=== PATIENT | male | born 1950 | race African-American/Black ===

== ENCOUNTER 2018-08-02 09:18 | Inpatient (IN) | payer MEDICARE ==
--- NOTE | 2018-07-31 16:50 | Diagnostic Imaging Report ---
EXAMINATION: PA and lateral views of the chest. COMPARISON: None CLINICAL HISTORY: Preoperative x-ray for bladder tumor removal DISCUSSION: Evaluation limited due to patient body habitus. Lungs are clear without focal airspace consolidation, pleural effusion, or pneumothorax. Calcified granuloma in the left upper lobe. Tortuous thoracic aorta with otherwise normal cardiomediastinal contour. No overt pulmonary edema. No acute osseous abnormality. Multilevel degenerative disc changes of the thoracic spine. IMPRESSION: No acute cardiopulmonary abnormalities. Signed by: Dr. Mendoza Bennett M.D. on 07/31/2018 4:47 PM
[~2018-08-02] VITALS: Ht 182.9 cm; Wt 128.8 kg
[~2018-08-02 09:18] MED LIST: AMLODIPINE BESYL5 MG PO; AMMONIUM LACTATE1 ML PO; CICLOPIROX15 GM TOP; CYCLOBENZAPRINE10 MG PO; DICLOFENAC SOD2.5 ML PO; FLECTOR1 EACH PO; HUMALOG100 UNIT/1 SC; LANTUS 3ML100 UNITS/ SC; LEVOCETIRIZINE D5 MG PO; METOPROLOL TART25 MG PO; NORCO 5-325 TA1 EACH PO; SIMVASTATIN20 MG PO; TAMSULOSIN HCL0.4 MG PO
--- OUTSIDE RECORDS SUMMARY | 2018-08-02 09:20 | XMS REPORT | Clinical Summary ---
Author Author [facility] Organization [facility] Address Unknown Phone Unavailable Care Team Providers Care Visual Effects Artist Name Role Phone Gayathri Thompson DO PCP Allergies Not on File Medications Not on file Active Problems Not on file Encounters Care Team Description Date Type Specialty Ann Pugh MD Atherosclerosis of artery of both lower extremities (Primary Dx) 01/04/2018 Transcribe Cardiovascular Orders Ann Pugh MD 12/25/2017 Telephone Cardiovascular after 08/01/2017 Social History Date Tobacco Use Types Packs/Day Years Used Never Assessed Sex Assigned at Date Recorded Not on file Industry Job Start Date Occupation Not on file Not on file Not on file Travel End Travel History Travel Start No recent travel history available. Last Filed Vital Signs Not on file Plan of Treatment Health Maintenance Due Date Last Done Comments COLON CANCER SCREENING 2001 SHINGRIX VACCINE (1 of 2) 2001 ZOSTER VACCINE 2011 PNEUMOCOCCAL 2016 POLYSACCHARIDE VACCINE AGE 65 AND OVER PNEUMOCOCCAL-13 2016 INFLUENZA VACCINE 04/17/2018 Procedures Comments Procedure Name Priority Date/Time Associated Diagnosis US ANKLE BRACHIAL INDEX Routine 01/11/2018 Atherosclerosis of artery 4:10 PM CDT of both lower extremities after 08/01/2017 Results * PV ankle brachial indices extremity complete (01/11/2018 4:10 PM CDT) Narrative Performed At [facility] Lower Extremity Arterial Physiologic Report [address] [place] [address], [address], [place] [address] Pat.Name:RICKY ROMOPaty.ID:[id number] .Date: 01/11/2018 Refer.MD:ANN PUGH MD Exam Time: 3:20:00 PMStudy Type:Physiologic Leg DOBAge:1950,67Y Sex: MALE Sonogrphr: Stella Aguilera RVT TapeVol: TG, CPT - 4: 21553 Echo Event ID:[id number] Order ID:[id number] Reason for Study:Circulation issues, referred by Dr. Gayathri Johnson. Non healing wound on top of left foot. History of high blood pressure and diabetes. Race:C SUMMARY: DOPPLER SIGNALS /ANALOG WAVEFORMS: ANALOG WAVEFORMS ARTERY RIGHT LEFT Posterior Tibial Abnormal Abnormal Dorsalis Pedis Abnormal Abnormal PHYSICIAN INTERPRETATION: 1.Resting ankle brachial indices suggest moderate lower extremity arterial occlusive disease, bilaterally. 2.Toe brachial index suggests severe disease bilaterally. MEASUREMENTS: PRESSURES Left Brachial Brach P152 mmHg Left Great Toe GreatToe P55 mmHg Right Brachial Brach P154 mmHg Right Great Toe GreatToe P62 mmHg Right Ankle PT AnklePT P112 mmHg Left Ankle PT AnklePT P103 mmHg Right Ankle DP AnkleDP P113 mmHg Left Ankle DP AnkleDP P103 mmHg Right ARLETH PT ARLETH PT0.73 Left ARLETH PT ARLETH PT0.67 Right RALETH DP ARLETH DP0.73 Left ARLETH DP ARLETH DP0.67 Right TBI TBI0.4 Left TBI TBI 0.36 Signed 01/11/2018 10:31 PM Ann Pugh MD, RPVI Procedure Note Interface, Radiology Results In - 01/11/2018 10:31 PM CDT [facility] Lower Extremity Arterial Physiologic Report [address] [place] [address], [address], [place] [address] Pat.Name: RICKY ROMO Pat.ID: [id number] .Date: 01/11/2018 Refer.MD: ANN PUGH MD Exam Time: 3:20:00 PM Study Type:Physiologic Leg Age: 9 1950,67Y Sex: MALE Sonogrphr: Stella Aguilera, RVT Tape Vol: TG, CPT - 4: 38116 Echo Event ID:[id number] Order ID: [id number] Reason for Study:Circulation issues, referred by Dr. Gayathri Johnson. Non healing wound on top of left foot. History of high blood pressure and diabetes. Race: C SUMMARY: DOPPLER SIGNALS / ANALOG WAVEFORMS: ANALOG WAVEFORMS ARTERY RIGHT LEFT Posterior Tibial Abnormal Abnormal Dorsalis Pedis Abnormal Abnormal PHYSICIAN INTERPRETATION: 1. Resting ankle brachial indices suggest moderate lower extremity arterial occlusive disease, bilaterally. 2. Toe brachial index suggests severe disease bilaterally. MEASUREMENTS: PRESSURES Left Brachial Brach P 152 mmHg Left Great Toe GreatToe P 55 mmHg Right Brachial Brach P 154 mmHg Right Great Toe GreatToe P 62 mmHg Right Ankle PT AnklePT P 112 mmHg Left Ankle PT AnklePT P 103 mmHg Right Ankle DP AnkleDP P 113 mmHg Left Ankle DP AnkleDP P 103 mmHg Right ARLETH PT ARLETH PT 0.73 Left ARLETH PT ARLETH PT 0.67 Right ARLETH DP ARLETH DP 0.73 Left ARLETH DP ARLETH DP 0.67 Right TBI TBI 0.4 Left TBI TBI 0.36 Signed 01/11/2018 10:31 PM Ann Pugh MD, RPVI Performing Organization Address City/State/Zipcode Phone Number [facility] [address] [place] [address] after 08/01/2017 Insurance Payer Benefit Subscriber ID Type Phone Address Plan / Group [employer] MEDICARE HUMANA xxxxxxxxx PPO MEDICARE PPO/PFFS/E [facility] Advance Directives Patient has advance care planning documents on file. For more information, danya wilcox contact: Inocente Harrison [address] [place] [address]
--- OUTSIDE RECORDS SUMMARY | 2018-08-02 09:20 | XMS REPORT ---
Author Author [facility] Address Unknown Phone Unavailable Care Team Providers Care Enrollment Specialist Name Role Phone KYLAH SYKES Unavailable Unavailable Problems This patient has no known problems. Allergies, Adverse Reactions, Alerts This patient has no known allergies or adverse reactions. Medications This patient has no known medications. Results Test Description Test Time Test Comments Text Results Atomic Results Result Comments CHEST 2 VIEWS 2018-07-31 16:46:00 [place] [address] Patient Name: MAGGY SOL MR #: [id number] : 1950 Age/Sex: 68/M Req #: [id number] [facility] Physician: Ordered by: KYLAH SYKES MD Report #: [id number] Location: OR Room/Bed: Procedure: [id number] DX/CHEST 2 VIEWS Exam Date: 07/31/18 Exam Time: 1623 REPORT STATUS: Signed EXAMINATION: PA and lateral views of the chest. ELIZABETH RISON: None CLINICAL HISTORY: Preoperative x-ray for bladder tumor removal DISCUSSION: Evaluation limited due to patient body habitus. Lungs are clear without focal airspace consolidation, pleural effusion, or pneumothorax. Calcified granuloma in the left upper lobe. Tortuous thoracic aorta with otherwise normal cardiomediastinal contour. No overt pulmonary edema. No acute osseous abnormality. Multilevel degenerative disc changes of the thoracic spine. IMPRESSION: No acute cardiopulmonary abnormalities. Signed by: Dr. Fitz Rodriguez M.D. on 07/31/2018 4:47 PM Dictated By: FITZ RODRIGUEZ MD 46 Transcribed By: LILIA on 07/31/181646 COPY TO: KYLAH SYKES MD
[2018-08-02] MEDS ORDERED: CEFOXITIN SOD 1 GM VIAL ONE (09:53)
[2018-08-02 11:00] LABS: BASOPHILS % 0.5 % (0.0-1.0); EOSINOPHILS # (AUTO) 0.1 (0.0-0.4); EOSINOPHILS % 1.9 % (0.0-6.0); HEMOGLOBIN 11.5 g/dL (14.0-18.0); LYMPHOCYTES # (AUTO) 2.6 (1.0-3.2); LYMPHOCYTES % 34.4 % (18.0-39.1); MEAN CORPUSCULAR HEMOGLOBIN 24.3 pg (28-32); MEAN CORPUSCULAR HGB CONC 30.3 g/dL (31-35); MEAN CORPUSCULAR VOLUME 80.3 fL (81-99); MONOCYTES # (AUTO) 0.5 (0.2-0.8); MONOCYTES % 7.2 % (4.4-11.3); NEUTROPHILS # (AUTO) 4.2 (2.1-6.9); NEUTROPHILS % 55.7 % (38.7-80.0); PLATELET COUNT 303 x10e3/uL (140-360); RED BLOOD COUNT 4.73 x10e6/uL (4.3-5.7)
[2018-08-02] MEDS ORDERED: DEXTROSE 5% 250ML 250 ML IV ONE (11:16)
[2018-08-02 11:20] LABS: CALCIUM 9.4 mg/dL (8.4-10.2)
[2018-08-02 11:21] LABS: INR 0.98; PARTIAL THROMBOPLASTIN TIME 26.6 seconds (23.8-35.5); PROTHROMBIN TIME 13.9 seconds (11.9-14.5)
[2018-08-02] MEDS ORDERED: IOPAMIDOL 610MG/1ML 300 MG/ML VIAL IV ONE (12:09)
[2018-08-02] MEDS ORDERED: MORPHINE SULFATE INJ 4 MG/ML INJ IV PRN (14:30)
[2018-08-02] MEDS ORDERED: HYDROCODONE/APAP 5MG-325MG TAB PO PRN (14:30)
[2018-08-02] MEDS ORDERED: FENTANYL CITRATE/PF 100MCG/2 ML INJ ONE ×2 (14:36→14:44)
[2018-08-02] MEDS ORDERED: MIDAZOLAM HCL 2 MG/2 ML VIAL ONE (14:44)
[2018-08-02] MEDS ORDERED: SEVOFLURANE INHAL SOLN 250 ML PEN BTL ONE (14:47)
[2018-08-02] MEDS ORDERED: EPHEDRINE SULFATE INJ 50 MG/10 ML SYR ONE (14:47)
[2018-08-02] MEDS ORDERED: LIDOCAINE HCL 2% LOCAL INJ 5 ML SDV VIAL INJ ONE (14:47)
[2018-08-02] MEDS ORDERED: PROPOFOL IV EMULSION 10 MG/ML 20 ML VIAL ONE (14:47)
[2018-08-02] MEDS ORDERED: ROCURONIUM BROMIDE 10 MG/ML 5ML VIAL ONE (14:47)
[2018-08-02] MEDS ORDERED: DEXAMETHASONE SOD PHOS INJ 4 MG/ML VIAL ONE (14:47)
[2018-08-02] MEDS ORDERED: ONDANSETRON HCL INJ 2 MG/ML VIAL ONE (14:47)
--- OUTSIDE RECORDS SUMMARY | 2018-08-02 15:06 | XMS REPORT | Clinical Summary ---
Author Author [facility] Organization [facility] Address Unknown Phone Unavailable Care Team Providers Care Geometry Teacher Name Role Phone Gayathri Thompson DO PCP [...] [facility] Lower Extremity Arterial Physiologic Report [address] [place] [address], [address], [place] [address] Pat.Name:RICKY ROMOPaty.ID:[id number] .Date: 01/11/2018 Refer.MD:ANN PUGH MD Exam Time: 3:20:00 PMStudy Type:Physiologic Leg DOBAge:1950,67Y Sex: MALE Sonogrphr: Stella Aguilera RVT TapeVol: TG, CPT - 4: 55218 Echo Event ID:[id number] Order ID:[id number] Reason for Study:Circulation issues, referred by Dr. [...] PT0.73 Left ARLETH PT ARLETH PT0.67 Right ARLETH DP ARLETH DP0.73 Left ARLETH DP ARLETH DP0.67 Right TBI TBI0.4 Left TBI TBI 0.36 Signed 01/11/2018 10:31 PM Ann Pugh MD, RPVI Procedure Note Interface, Radiology Results In - 01/11/2018 10:31 PM CDT [facility] Lower Extremity Arterial Physiologic Report [address] [place] [address], [address], [place] [address] Pat.Name: RICKY ROMO Pat.ID: [id number] .Date: 01/11/2018 Refer.MD: ANN PUGH MD Exam Time: 3:20:00 PM Study Type:Physiologic Leg Age: 9 1950,67Y Sex: MALE Sonogrphr: Stella Aguilera, RVT Tape Vol: TG, CPT - 4: 98906 Echo Event ID:[id number] Order ID: [id number] Reason for Study:Circulation issues, referred by Dr. [...] Organization Address City/State/Zipcode Phone Number [facility] [address] [place] [address] after 08/01/2017 Insurance Payer Benefit Subscriber ID Type Phone Address Plan / Group [employer] MEDICARE HUMANA xxxxxxxxx PPO MEDICARE PPO/PFFS/E [facility] Advance Directives Patient has advance care planning documents on file. For more information, danya wilcox contact: Inocente Harrison [address] [place] [address]
--- NOTE | 2018-08-02 15:49 | Operative Report ---
DATE OF PROCEDURE: August 02, 2018 PREOPERATIVE DIAGNOSIS: Bladder cancer. POSTOPERATIVE DIAGNOSIS: Bladder cancer. OPERATION PERFORMED: Transurethral resection of bladder tumor, 7 cm x 8 cm. ANESTHESIA: General. INDICATIONS: This patient is a 68-year-old black male who, since August of 2017, has had intermittent gross hematuria and blood dripping out his penis. He first came to see me in October 2017. At that time, I obtained a CT scan on him. The CT scan suggested some tiny, little stones in the bladder, but there was no hydronephrosis. In view of his diabetes and chronic renal disease, I did not induce IV contrast. I wanted to cystoscope the patient, but he refused. He stated that it always cleared up with antibiotics, and all he wanted was antibiotics and he would go home. I told him that this was a dangerous situation because it could be bladder cancer, and he said he did not want any cystoscopy or any operations. He had had enough operations because of his previous surgery for colon cancer. The patient then came back and forth over several months with intermittent episodes of gross hematuria and urinary tract infections, being treated with antibiotics and refusing cystoscopy until he finally said he will allow me to do something about the blood because it could not continue going that way, so he allowed me to perform a cystoscopy in the office on July 22, 2018. This revealed that the floor of the bladder and trigone and lateral stanley were coated with papillary tumors. I did not see the ureteral orifices. The procedure was discontinued due to patient discomfort. I obtained a followup CT scan on the patient because so many months had passed, and I wanted to know if the patient had hydronephrosis since I was not able to see the ureteral orifices. There was no evidence of hydronephrosis, but the CT scan obtained in July of 2018 revealed some thickening of the bladder wall on the floor and the lateral stanley and posterior wall. For further details, please refer to the history and physical. The procedure was done the following fashion: DESCRIPTION OF PROCEDURE: Patient was taken to the operating room, placed under general anesthesia, dressed and draped with Hibiclens in the lithotomy position in the usual fashion. The urethra was dilated from 18 Icelandic to 30 Icelandic with [place] sounds. A 27-Icelandic Olympus continuous-flow resectoscope was inserted and the obturator removed. I used the bipolar electrode with the cutting on 180 and coag on 120. This was with the bipolar electrode with normal saline as the irrigation fluid. Initially, I saw a whole bunch of bladder tumor in there covering the trigone, posterior wall, lateral wall and some other areas. It appeared multifocal, and they were resected. I also did a resection of this huge area of bladder that was coating the trigone and the posterior wall and the lateral stanley of the bladder and the floor of the bladder, which was about 8 cm x 8 cm in size. I never identified the ureteral orifices during the course of this resection. At the end of the resection, I had a good control over the bleeding, and my estimated blood loss was about 50 mL. The blood loss was mostly at the beginning before I started getting this bloody tumor out. The specimens were evacuated using an Ellik. I again inspected the bladder for hemostasis with electrocautery. The patient tolerated the procedure well and left the operating room with a 24-Icelandic, 30-mL balloon, 3-way catheter, with normal saline for continuous bladder irrigation. My plan at this time is to consult Dr. Santoro to help with postoperative management. I will also be consulting Dr. Castillo. Job#: [id number]
[2018-08-02] MEDS: SODIUM CHLORIDE 0.9% 1000ML 1,000 ML IV SCH (16:07)
[2018-08-02] MEDS ORDERED: DEXTROSE 50% SYRINGE 50 ML IV PRN (16:30)
[2018-08-02] MEDS ORDERED: HYDRALAZINE HCL 20 MG/ML VIAL IV PRN (16:30)
[2018-08-02] MEDS ORDERED: ONDANSETRON HCL INJ 2 MG/ML VIAL IV PRN (16:30)
[2018-08-02] MEDS ORDERED: NIFEDIPINE CR 30 MG TAB PO SCH (16:30)
[2018-08-02] MEDS ORDERED: METOPROLOL TARTRATE 25 MG TAB PO SCH (17:00)
[2018-08-02 17:02] VITALS: BP 143/75
[2018-08-02 17:04] VITALS: BP 191/68
--- NOTE | 2018-08-02 17:12 | Consultation ---
DATE OF CONSULTATION: August 02, 2018 INTERNAL MEDICINE CONSULTATION CHIEF COMPLAINT: Status post transurethral resection of the bladder. HPI: This is a 68-year-old male with complaints of underlying hematuria ongoing for several weeks now. Of note, possibly months according to the urologist in which he is very noncompliant. Comes in for an elective transurethral resection of the bladder due to a bladder mass that was seen during cystoscopy today. The patient was then transferred to the medical floor, and currently has continuous bladder irrigation. Medicine was consulted for medical management. The patient has a known history of hypertension and type 2 diabetes, as well as hyperlipidemia. The patient was seen and evaluated at the bedside on the medical floor. Currently, doing well with no complaints. He reports that he is just very cold, but his pain is well tolerable with no other issues. REVIEW OF SYSTEMS: Pertinent positives are hematuria, bladder pain. Pertinent negatives are denies any chest pain, palpitations, nausea, vomiting, diarrhea, dysuria, , lightheadedness, dizziness, abdominal pain, headache, shortness of breath, cough, production, fever, or any other complaints. A 14-point review of systems has been reviewed with the patient and are negative. ALLERGIES: NO KNOWN DRUG ALLERGIES. HOME MEDICATIONS 1. Amlodipine 5 mg daily. 2. Cyclobenzaprine 10 mg daily. 3. Wilmot 5 one tab p.o. daily. 4. Metoprolol 25 mg p.o. b.i.d. 5. Simvastatin 20 mg daily. 6. Tamsulosin 0.4 mg 2 tablets q.24 h. PAST MEDICAL HISTORY: BPH, hyperlipidemia, hypertension, hematuria. PAST SURGICAL HISTORY: Currently, received a transurethral resection of the bladder. FAMILY HISTORY: Hypertension and diabetes. SOCIAL HISTORY: No alcohol. The patient is and has children. PHYSICAL EXAMINATION VITAL SIGNS: He is afebrile. Respiratory rate is good. GENERAL: Not in acute distress. Alert and oriented times 3. Cooperative on examination. HEENT: Head is normocephalic and atraumatic. Eyes: Pupils equal, round and reactive to light bilaterally. Extraocular movements intact bilaterally. NECK: Supple. Good range of motion. Throat with no evidence of any erythema or exudates in the posterior pharynx. Has poor dentition. PULMONARY: Clear to auscultation bilaterally. No wheezing. No rales. No rhonchi. No crackles appreciated. CARDIOVASCULAR: Positive S1 and S2. No murmurs, rubs or gallops appreciated. ABDOMEN: Soft, nondistended and nontender to palpation. Bowel sounds present. MUSCULOSKELETAL: Strength is 5/5 throughout. No evidence of any muscle deficit on examination. No weakness appreciated. NEUROLOGICAL: Cranial nerves II-XII are grossly intact. No evidence of any neurological deficits on exam. SKIN: Intact. Warm to touch. Good cap refill. PSYCHIATRIC: Normal affect and mood. EXTREMITIES: No edema. Good range of motion throughout. LABS: White count 7.5, hemoglobin 11.5, hematocrit 38, and platelets of 303,000. Coagulation: PT 13.9, INR 0.98, and PTT 26. Chemistry: Sodium 141, potassium is 5, chloride 110, bicarb 21, anion gap 15, BUN is 75, creatinine is 2. Glucose is 68. Calcium 9.4. MICROBIOLOGY: None. IMAGING STUDIES: Chest x-ray performed on July 21, 2018, shows no acute cardiopulmonary abnormality. IMPRESSION 1. Status post transurethral resection of the bladder with underlying hematuria concerning for bladder cancer. 2. Hypertension. 3. Hyperlipidemia. 4. BPH. 5. Chronic pain. PLAN: At this time, he continues to be on continuous bladder irrigation per urology. Urology is following. Hematology was consulted for concerns of bladder cancer. We are going to resume sliding scale due to diabetes. Will be on a diabetic diet. His blood pressure is elevated. Will put on p.r.n. hydralazine and start on nifedipine XL 30 mg daily, first dose now. Discontinue the Norvasc. Blood pressure could be elevated due to pain. I am going to put him on an insulin sliding scale, antinausea medication and pain control. Otherwise, will continue with same plan of care and follow with the primary team. Job#: [id number] CLARISA
[2018-08-02] MEDS: CEFOXITIN SOD 1 GM VIAL IV SCH (17:18)
[2018-08-02] MEDS: DOCUSATE SODIUM 100 MG CAP PO SCH (17:18)
[2018-08-02] MEDS ORDERED: CEFOXITIN 1GM/ NS 50ML 50 ML IV SCH (18:00)
--- NOTE | 2018-08-02 19:56 | Consultation ---
DATE OF CONSULTATION: CARDIOLOGY CONSULTATION REASON FOR CONSULTATION: Arrhythmia. HISTORY OF PRESENT ILLNESS: This is a 68-year-old man who presented electively for cystoscopy and bladder resection. He had increased amounts of hematuria, which he was being evaluated for by urology. He underwent resection today and is doing well overall. Of note, the patient is not complaint with the history and has the blankets over his head. He otherwise has a history of hypertension and hyperlipidemia. Of note, after the procedure today on telemetry monitoring was revealed to have bradycardia in the range of 40 to 50s. He also developed atrial ventricular block. The patient states that he is not having any chest pain, shortness of breath, palpitation, or near syncopal events. He has no prior cardiac history. REVIEW OF SYSTEMS: Unable to be obtained due to unwillingness to cooperate in the history taking process. PAST MEDICAL HISTORY: Hypertension, hyperlipidemia, hematuria, benign prosthetic hypertrophy. PAST SURGICAL HISTORY: As stated above in the HPI. PAST FAMILY HISTORY: No premature coronary artery disease or sudden cardiac . SOCIAL HISTORY: No illicit drug use, alcohol use, or tobacco use. ALLERGIES: NO KNOWN DRUG ALLERGIES. MEDICATIONS: See medication reconciliation form. PHYSICAL EXAMINATION VITAL SIGNS: Temperature is 96, heart rate is 84, respirations are 22, blood pressure is 191/68, oxygen saturation is 98% on room air. GENERAL: He is an elderly appearing man, lying comfortably in bed. HEAD: Normocephalic, atraumatic. EYES: The extraocular muscles appeared intact. NECK: No JVD. No bruits. CARDIOVASCULAR: Regular rate and rhythm. LUNGS: Clear to auscultation. ABDOMEN: Soft, nondistended. EXTREMITIES: No edema. VASCULAR: Diminished pulses. Chest x-ray shows no acute cardiopulmonary abnormality. All laboratory data were reviewed. MEDICATIONS: Reviewed. A 12-lead electrocardiogram shows: 1. Normal sinus rhythm with first degree AV block. 2. Normal sinus rhythm with premature atrial complexes with increased first degree AV block versus type 1 second degree AV block. IMPRESSION AND RECOMMENDATIONS 1. Cardiac arrhythmia. Patient has first degree AV block and then a subsequent 12-lead electrocardiogram showing either second degree Mobitz type 1 block versus first degree AV block with premature atrial complexes with an increased VT interval. Nevertheless, he is asymptomatic, hemodynamically stable, and has no syncopal events. He has no evidence of high-grade AV block. We will avoid AV radha blockers and will discontinue his metoprolol. Reasonable to check an echocardiogram as he does have risk factors for heart disease. Continue telemetry monitoring. 2. Hypertension. The patient's blood pressure is not controlled. Increase nifedipine to 90 mg daily. Avoid AV radha blockers. Thank you for the consultation. Will follow along with you. Job#: [id number] VAS
[2018-08-02 20:00] VITALS: BP 118/66
[2018-08-02] MEDS: SIMVASTATIN 20 MG TAB PO SCH (21:00)
[2018-08-02 21:05] VITALS: BP 118/66
[2018-08-02] MEDS: NIFEDIPINE CR 30 MG TAB PO SCH (21:30)
[2018-08-02] MEDS: TAMSULOSIN HCL 0.4 MG CAP PO SCH (22:00)
[2018-08-03] VITALS (8 sets, daily range): BP systolic 98–129; BP diastolic 58–70
[2018-08-03] MEDS: CEFOXITIN SOD 1 GM VIAL IV SCH ×4 (00:04→17:10)
[2018-08-03] MEDS: HYDROCODONE/APAP 7.5MG-325MG 1 EA TAB PO PRN ×3 (01:59→21:27)
[2018-08-03] MEDS: SODIUM CHLORIDE 0.9% 1000ML 1,000 ML IV SCH ×3 (02:00→21:27)
[2018-08-03 05:51] LABS: BASOPHILS # (AUTO) 0.1 (0.0-0.1); BASOPHILS % 0.2 % (0.0-1.0); HEMATOCRIT 32.8 % (38.2-49.6); HEMOGLOBIN 10.2 g/dL (14.0-18.0); LYMPHOCYTES # (AUTO) 1.9 (1.0-3.2); LYMPHOCYTES % 6.2 % (18.0-39.1); MEAN CORPUSCULAR HEMOGLOBIN 24.5 pg (28-32); MEAN CORPUSCULAR HGB CONC 31.1 g/dL (31-35); MEAN CORPUSCULAR VOLUME 78.8 fL (81-99); MONOCYTES # (AUTO) 1.4 (0.2-0.8); MONOCYTES % 4.6 % (4.4-11.3); NEUTROPHILS # (AUTO) 26.4 (2.1-6.9); NEUTROPHILS % 88.2 % (38.7-80.0); PLATELET COUNT 285 x10e3/uL (140-360); RED BLOOD COUNT 4.16 x10e6/uL (4.3-5.7); RED CELL DISTRIBUTION WIDTH 17.5 % (11.7-14.4)
[2018-08-03 06:09] LABS: CALCIUM 7.6 mg/dL (8.4-10.2); CREATININE, SERUM 2.24 mg/dL (0.72-1.25)
[2018-08-03 07:17] LABS: ANISOCYTOSIS SLIGHT; BAND NEUTROPHILS % (MANUAL) 5 %; LYMPHOCYTES % (MANUAL) 8 % (19-48); MONOCYTES % (MANUAL) 1 % (3.4-9.0); NEUTROPHILS % (MANUAL) 86 % (40-74)
[2018-08-03 07:18] LABS: MICROCYTOSIS SLIGHT; PLATELET ESTIMATE ADEQUATE; PLATELET MORPHOLOGY COMMENT NORMAL; RBC MORPHOLOGY COMMENT ABNORMAL
[2018-08-03] MEDS: TAMSULOSIN HCL 0.4 MG CAP PO SCH ×2 (08:47→21:27)
[2018-08-03] MEDS: CYCLOBENZAPRINE HCL 10 MG TAB PO SCH (08:47)
[2018-08-03] MEDS: DOCUSATE SODIUM 100 MG CAP PO SCH ×2 (08:47→17:10)
[2018-08-03] MEDS ORDERED: AMLODIPINE BESYLATE 5 MG TAB PO SCH (09:00)
--- NOTE | 2018-08-03 09:55 | Progress Note ---
DATE: August 03, 2018 UROLOGY PROGRESS NOTE SUBJECTIVE: The patient is now 1 day status post transurethral resection of a large bladder tumor. The ureteral orifices were never visualized. The region of the trigone, the posterior wall, and the lateral stanley were coated with an 8 cm x 8 cm area of papillary-appearing tumors. The patient on the 1st postoperative day appears good. He has some problems with heart block and blood pressure difficult to control. Cardiology consultation was obtained, and oncology consultation has been obtained because I anticipate the patient will have intravesical chemotherapy in the near future. The patient's quarter lining smoother is adjusting his antihypertensive medications and is addressing his heart block. The oncology consultation has not yet been reviewed. Dr. Santoro has started the patient on sliding scale insulin for management of his diabetes. PHYSICAL EXAMINATION GENERAL: At this time reveals that the patient looks good. He is up in the chair. He states he feels good. LUNGS: He is breathing without difficulty. ABDOMEN: Soft. The catheter efflux is light pink color with continuous bladder irrigation running at a very slow rate. IMPRESSION: At this time; 1. Bladder cancer. 2. Insulin-dependent diabetes mellitus. 3. Morbid obesity. 4. Heart block. 5. Arteriosclerotic cardiovascular disease. PLAN: My plan at this time is to obtain a bilateral renal ultrasound. My reason for the ultrasound is that I was unable to visualize his ureteral orifices at all either during my cystoscopy in the office or during the transurethral resection performed yesterday. I would like to see if he is developing hydronephrosis or not. This could change how I do things. However, the patient is perfectly comfortable at this time, and there is no costovertebral angle tenderness; however, in view that I was never able to visualize the ureteral orifices, I want to make sure that he is not developing hydronephrosis as a complication of my undoubtedly having resected the orifices during the course of the procedure. Also, in view of his catheter, if he continues to do well, I am scheduling a removal of the Fermin catheter tomorrow morning for a trial of voiding. Job#: [id number] LPA
[2018-08-03] MEDS ORDERED: FUROSEMIDE INJ 10 MG/ML 4 ML VIAL IV ONE (13:30)
[2018-08-03 13:54] LABS: BASOPHILS # (AUTO) 0.1 (0.0-0.1); BASOPHILS % 0.2 % (0.0-1.0); HEMATOCRIT 30.7 % (38.2-49.6); HEMOGLOBIN 9.6 g/dL (14.0-18.0); LYMPHOCYTES % 8.4 % (18.0-39.1); MEAN CORPUSCULAR HEMOGLOBIN 24.5 pg (28-32); MEAN CORPUSCULAR HGB CONC 31.3 g/dL (31-35); MEAN CORPUSCULAR VOLUME 78.3 fL (81-99); MONOCYTES # (AUTO) 1.5 (0.2-0.8); MONOCYTES % 6.1 % (4.4-11.3); NEUTROPHILS # (AUTO) 20.6 (2.1-6.9); NEUTROPHILS % 84.4 % (38.7-80.0); PLATELET COUNT 271 x10e3/uL (140-360); RED BLOOD COUNT 3.92 x10e6/uL (4.3-5.7); RED CELL DISTRIBUTION WIDTH 17.6 % (11.7-14.4)
[2018-08-03 14:15] LABS: ANION GAP 17.1 mmol/L (8-16); CALCIUM 7.6 mg/dL (8.4-10.2); CREATININE, SERUM 2.33 mg/dL (0.72-1.25); POTASSIUM 5.1 mmol/L (3.5-5.1)
--- NOTE | 2018-08-03 14:42 | Progress Note ---
DATE: August 03, 2018 MEDICINE PROGRESS NOTE SUBJECTIVE: Patient is doing well today with no complaints. He is much more awake, tolerating his diet well. His potassium was elevated at 6. He is a very poor historian. He does not know his past history in terms of chronic kidney disease or not. OBJECTIVE VITAL SIGNS: Temperature is 98.2, pulse 76, respiratory rate is 20, blood pressure 117/64, pulse oximetry 92% on 3 liters nasal cannula. LAB FINDINGS: His white count shot up to 29.9, but he is afebrile. Yesterday, his white count was 7.5, seems to be a lab error but we are going to repeat. Hemoglobin 10.2, hematocrit is 32, platelets of 285. Coagulation: PT 13.9, INR of 0.98, PTT is 26. Chemistry: Sodium 136, potassium was 6, chloride 109, bicarb 20, anion gap of 14, BUN is 40, creatinine is 2.2. Glucose is 126. Calcium 7.6. MICROBIOLOGY: None. IMAGING STUDIES: Chest x-ray shows no acute cardiopulmonary abnormality. PHYSICAL EXAMINATION GENERAL: Not in acute distress. Alert and oriented x3, cooperative on examination. HEENT: Head normocephalic, atraumatic. Eyes: Pupils are equal, round, and reactive to light bilaterally. Extraocular movements intact bilaterally. NECK: Supple with good range of motion. THROAT: No evidence of any erythema or exudates in the posterior pharynx. Has poor dentition. PULMONARY: Clear to auscultation bilaterally. No wheezing, no rales, no rhonchi, no crackles appreciated. CARDIOVASCULAR: Positive S1, S2. No murmurs, rubs or gallops appreciated. ABDOMEN: Soft, nondistended, nontender to palpation. Bowel sounds present. MUSCULOSKELETAL: Strength is 5/5 throughout. NEUROLOGICAL: No evidence of any neurological deficit on exam. SKIN: Intact. Warm to touch. Good capillary refill. PSYCHIATRIC: Normal affect and mood. EXTREMITIES: No edema. Good range of motion throughout. IMPRESSION 1. Status post transurethral resection of the bladder with underlying hematuria, likely bladder cancer. 2. Hypertension. 3. Hyperlipidemia. 4. Benign prostatic hypertrophy. 5. Chronic pain syndrome. 6. Hyperkalemia. 7. Chronic kidney disease stage 4. PLAN: At this time, patient's potassium is elevated at 6. We are going to repeat chemistry. Put him on scheduled Lasix 40 mg IV b.i.d. times 3 doses, give first dose now. Patient is very poor historian. He does not know if he had any kind of medical issues, does not know if he has chronic kidney disease as well. His other electrolytes seems to be at baseline. His white count is elevated at 29, though he is afebrile, not sure of the etiology of the white count being so high. It does not seem like he got any steroids in the OR. We are going to repeat labs now, CBC and BMP stat. In relation to his blood pressure, his blood pressure is stable. We will continue with nifedipine. His hematuria is improving. We will continue to follow with the urologist. Fermin will continue in place. Job#: [id number]
--- NOTE | 2018-08-03 15:08 | Diagnostic Imaging Report ---
EXAMINATION: Renal ultrasound. CLINICAL HISTORY :Malignant neoplasm of the bladder COMPARISON: <None available.> TECHNIQUE: Grayscale and color Doppler evaluation of the kidneys and bladder was performed in transverse and longitudinal planes. DISCUSSION: RIGHT KIDNEY: The right kidney measures 11.2 cm in length and shows normal echogenicity. No hydronephrosis, shadowing calculi or solid mass lesions. LEFT KIDNEY: The left kidney measures 10.2 cm in length and shows normal echogenicity. No hydronephrosis, shadowing calculi or solid mass lesions. BLADDER: Bladder is decompressed with a Fermin catheter. IMPRESSION: 1. Unremarkable renal ultrasound. Signed by: Dr. Sean Wellington M.D. on 08/03/2018 3:05 PM
--- NOTE | 2018-08-03 15:41 | Progress Note ---
DATE: August 03, 2018 CARDIOLOGY PROGRESS NOTE SUBJECTIVE: Mr. Romo complains of pain. Denies any chest pain. OBJECTIVE VITAL SIGNS: Afebrile. Heart rate 76, blood pressure 116/64, and O2 sat is 92%. CARDIOVASCULAR: Regular rhythm. No murmurs. LUNGS: Decreased breath sounds bilaterally. LABORATORY DATA: WBC count is 24,000. Creatinine is 2.33. TELEMETRY: Shows sinus rhythm. ASSESSMENT 1. Cardiac arrhythmia, currently resolved. 2. Hypertension. RECOMMENDATIONS: The patient is stable from the cardiac standpoint. We will continue to monitor him on telemetry for the next 24 hours. He is cleared for any surgical procedure as indicated. Job#: [id number] LPA
[2018-08-03 16:09] LABS: LYMPHOCYTES % (MANUAL) 2 % (19-48); MONOCYTES % (MANUAL) 2 % (3.4-9.0); NEUTROPHILS % (MANUAL) 96 % (40-74)
[2018-08-03 16:10] LABS: ANISOCYTOSIS SLIGHT; HYPOCHROMASIA SLIGHT; MICROCYTOSIS SLIGHT; PLATELET ESTIMATE ADEQUATE; PLATELET MORPHOLOGY COMMENT NORMAL; RBC MORPHOLOGY COMMENT ABNORMAL
[2018-08-03] MEDS ORDERED: DIAZEPAM 2 MG TAB PO PRN (18:30)
[2018-08-03] MEDS: NIFEDIPINE CR 30 MG TAB PO SCH (21:00)
[2018-08-03] MEDS ORDERED: FUROSEMIDE INJ 10 MG/ML 4 ML VIAL IV SCH (21:00)
[2018-08-03] MEDS: SIMVASTATIN 20 MG TAB PO SCH (21:28)
[2018-08-04 00:27] VITALS: BP 130/60
[2018-08-04] MEDS: CEFOXITIN SOD 1 GM VIAL IV SCH ×3 (00:31→12:01)
[2018-08-04 04:48] VITALS: BP 115/60
[2018-08-04 05:31] LABS: BASOPHILS # (AUTO) 0.1 (0.0-0.1); BASOPHILS % 0.2 % (0.0-1.0); HEMATOCRIT 32.2 % (38.2-49.6); HEMOGLOBIN 10.1 g/dL (14.0-18.0); LYMPHOCYTES # (AUTO) 2.1 (1.0-3.2); LYMPHOCYTES % 10.5 % (18.0-39.1); MEAN CORPUSCULAR HEMOGLOBIN 24.5 pg (28-32); MEAN CORPUSCULAR HGB CONC 31.4 g/dL (31-35); MONOCYTES # (AUTO) 1.8 (0.2-0.8); MONOCYTES % 8.8 % (4.4-11.3); NEUTROPHILS # (AUTO) 16.2 (2.1-6.9); NEUTROPHILS % 79.8 % (38.7-80.0); PLATELET COUNT 265 x10e3/uL (140-360); RED BLOOD COUNT 4.13 x10e6/uL (4.3-5.7); RED CELL DISTRIBUTION WIDTH 17.4 % (11.7-14.4)
[2018-08-04 05:50] LABS: ANION GAP 17.4 mmol/L (8-16); CALCIUM 7.6 mg/dL (8.4-10.2); CREATININE, SERUM 2.6 mg/dL (0.72-1.25); POTASSIUM 4.4 mmol/L (3.5-5.1)
[2018-08-04] MEDS: HYDROCODONE/APAP 7.5MG-325MG 1 EA TAB PO PRN (06:10)
[2018-08-04] MEDS: SODIUM CHLORIDE 0.9% 1000ML 1,000 ML IV SCH (06:33)
[2018-08-04 08:03] VITALS: BP 131/56
[2018-08-04] MEDS ORDERED: FAMOTIDINE 20 MG TAB PO NR (08:30)
[2018-08-04] MEDS ORDERED: FAMOTIDINE 20 MG TAB ONE (08:32)
[2018-08-04] MEDS: TAMSULOSIN HCL 0.4 MG CAP PO SCH (08:50)
[2018-08-04] MEDS: DOCUSATE SODIUM 100 MG CAP PO SCH (08:50)
[2018-08-04] MEDS: CYCLOBENZAPRINE HCL 10 MG TAB PO SCH (08:50)
[2018-08-04 09:45] VITALS: BP 131/56
[2018-08-04] MEDS ORDERED: METOPROLOL SUCCINATE 50 MG TAB XL PO NR (11:00)
--- NOTE | 2018-08-04 11:42 | Progress Note ---
DATE: August 04, 2018 CARDIOLOGY PROGRESS NOTE SUBJECTIVE: Mr. Romo feels well. He continues to have some abdominal pain. PHYSICAL EXAMINATION VITAL SIGNS: Afebrile. Heart rate 93, blood pressure is 131/56. O2 sat is 98%. CARDIOVASCULAR: Regular rhythm. No murmurs or gallops. Delayed S4 gallop. Systolic murmur. LUNGS: Decreased breath sounds. LABORATORY DATA: WBC count is 20,000. Hemoglobin 10, creatinine 2.6 with a baseline of 2.0 at the time of admission. Telemetry shows sinus rhythm with PACs. ASSESSMENT: Hypertension with hypertensive heart disease. RECOMMENDATIONS: Ejection fraction is normal. Patient has mild aortic valve stenosis. I will add a beta jolene to his medical regimen. He is cleared for surgical procedure. Job#: [id number] BING
[2018-08-04 12:20] VITALS: BP 114/57
[2018-08-04] MEDS ORDERED: MACROBID 100 M100 MG PO ×2 (13:16→13:20)
[2018-08-04] MEDS ORDERED: METOPROLOL SUCC50 MG PO (13:28)
--- NOTE | 2018-08-04 13:47 | Progress Note ---
DATE: August 04, 2018 DISCHARGE PROGRESS NOTE AGE: The patient is 68. SEX: Male. The patient is afebrile. His white blood cell count has come down to 20.2. His hemoglobin is 10.1. His hematocrit is 32.2. His BUN is 49. His creatinine is 2.6. The glucose is 96. The patient has been urinating. He states that his stream is okay. I last saw his urine. His urine was clear colored. The patient, however, has been fighting with the nurses and has been very combative with them and ripping at IV lines and may need to go home. The plan at this time is to discharge the patient on Macrobid 100 mg p.o. twice daily, #20. Dr. Mcgarry has written a prescription for Toprol-XL 50 mg 1 p.o. daily. The patient will have return appointment to see me again in 2 weeks, at which point in time we will go over the results of his pathology. Further recommendations will be made depending on the results of the pathology. Job#: [id number]
--- NOTE | 2018-08-04 15:39 | Progress Note ---
DATE: August 04, 2018 MEDICINE PROGRESS NOTE SUBJECTIVE: Patient is adamant about leaving today. His white count did improve to 20, it is felt like this is likely to be a reactive. He is afebrile, doing well with no other issues. LABORATORY FINDINGS: Show white count is 20, hemoglobin 10, hematocrit 32, and platelets of 265. Chemistry; sodium 140, potassium is 4.4, chloride 109, bicarb 18, anion gap of 17, BUN is 45, creatinine is 2.6, glucose is 96. MICROBIOLOGY: None. IMAGING STUDIES: Renal ultrasound was unremarkable. Right kidney 11.2 cm, left kidney 10.2 cm. PHYSICAL EXAMINATION VITAL SIGNS: Temperature is 97.6, pulse 95, respiratory rate is 20, blood pressure 114/57, pulse ox is 98% on room air. He has been afebrile. GENERAL: Not in acute distress, alert and oriented x3, cooperative on examination. HEENT: Head: Normocephalic, atraumatic. Eyes: Pupils equal, round, and reactive to light bilaterally. Extraocular movements intact bilaterally. Throat; no evidence of any erythema or exudates in the posterior pharynx. Has poor dentition. NECK: Supple with good range of motion. PULMONARY: Clear to auscultation bilaterally. No wheezing, no rales, no rhonchi, no crackles appreciated. CARDIOVASCULAR: Positive S1, S2. No murmurs, rubs, or gallops appreciated. ABDOMEN: Soft, nondistended, nontender to palpation. Bowel sounds present. MUSCULOSKELETAL: Strength is 5/5 throughout. No evidence of any musculoskeletal deficit on examination. No weakness appreciated. NEUROLOGIC: Cranial nerves II through XII are grossly intact. No evidence of any neurological deficit on exam. SKIN: Intact. Warm to touch. Good capillary refill. PSYCHIATRIC: Normal affect and mood. EXTREMITIES: No edema. Good range of motion throughout. IMPRESSION 1. Status post transurethral resection of the bladder with underlying hematuria likely bladder cancer. 2. Hypertension. 3. Hyperlipidemia. 4. Benign prostatic hypertrophy. 5. Chronic pain syndrome. 6. Hyperkalemia. 7. Stress-induced leukocytosis. 8. Chronic kidney disease stage 4. PLAN: At this time, it was felt that the patient stress. He is afebrile, doing well with no complaints. Patient has been cleared by urology and he is going to be discharged by the urology services. He will continue with same plan of care. Will need to followup. Will get repeat labs in the next 1 week. Otherwise, he will followup with urology. Job#: [id number] SAVANAH
--- NOTE | 2018-08-05 04:15 | Discharge Summary ---
CONSULTING PHYSICIANS 1. Dr. Carranza. 2. Dr. Santoro. 3. Dr. Mcgarry. FINAL DISCHARGE DIAGNOSES 1. Bladder cancer. 2. Gross hematuria. 3. Urinary urgency. 4. Incontinence. 5. Chronic prostatitis. 6. Benign prostatic hypertrophy with lower urinary tract obstructions. 7. Poor urinary stream. 8. Insulin-dependent diabetes mellitus. 9. Arteriosclerotic cardiovascular disease. 10. Hypertension. 11. History of malignant neoplasm of the colon. 12. Peripheral diabetic neuropathy. 13. Hypercholesterolemia. 14. Obesity. OPERATIONS PERFORMED: Transurethral resection of a bladder tumor, size 8 cm x 8 cm. Date of the operation was August 02, 2018. SURGEON: Dr. David Bustillo. HISTORY OF PRESENT ILLNESS: This patient is a 68-year-old black male who had been having gross hematuria since August 2018. I initially saw him in October 2017; at which time, he was having intermittent gross hematuria. It improved. His urine was infected. He improved with some oral antibiotics, but I obtained a CT scan on him without contrast because of his diabetes. This appeared essentially showing no tumor in the urinary tract; however, I wanted to cystoscope the patient; he refused. The patient then kept coming back and forth to my office with intermittent episodes of gross hematuria, which would respond to antibiotics and I kept trying to get the patient to cystoscope him and the patient kept refusing to allow a cystoscopy. Finally, the patient permitted a cystoscopy on July 22, 2018 in my office and this revealed a bladder full of cancer. I was unable to visualize the ureteral orifices. I repeated a CT scan without contrast on July 26, 2018, which revealed no evidence of hydronephrosis, but there was some mild thickening of the posterior wall of the bladder and the floor of bladder. There was no evidence of lymphadenopathy. There was evidence of severe degenerative disc disease. The patient's past medical history is remarkable. He has had surgery for colon cancer. He has hypertension, arteriosclerotic cardiovascular disease, hypercholesterolemia, and insulin-dependent diabetes, and the patient has a history of being very noncompliant. For further details, please refer to my history and physical. HOSPITAL COURSE: The patient came into the hospital on August 02, 2018 and had a transurethral resection of a bladder tumor. It was about 8 cm x 8 cm in size. All of the tumor appeared superficial and papillary in nature. It did not appear endophytic or exophytic. It was just a coating of the generalized area of the bladder that completely obscured the trigone and ureteral orifices and some of the lateral stanley of the bladder and floor of the bladder. The patient tolerated the procedure well and left the operating room in good condition. The patient did have some problems with heart block postoperatively and Dr. Mcgarry was consulted. Dr. Santoro managed the patient's medical problems because he required maintenance of insulin for his diabetes after the procedure. The patient also had a problem with being noncompliant with the nursing staff and pulling at catheters and IV lines. The patient had a followup ultrasound done on August 03, 2018. This was done because I could not identify the ureteral orifices during the procedure and I am positive that I must have resected them and I wanted to see if he has developed hydronephrosis at all as a result of the procedure and the patient in fact had a normal ultrasound that revealed no evidence of hydronephrosis. On the 2nd postoperative day, the catheter was removed. The patient was voiding clear-colored urine and denied pain or burning on urination and he was demanding to go home. Dr. Mcgarry had written him a prescription for metoprolol 50 mg p.o. daily. I am sending the patient home on Macrobid 100 mg p.o. twice daily for 10 days. He will have return appointment to see me again in 2 weeks; at which point in time, we will go over the results of the pathology. Further recommendations will be made at that time. It should also be noted that Dr. Naheed Carranza was consulted from oncology because I am sure this patient, if the tumor was not invasive, will need intravascular chemotherapy as well. Job#: [id number] LEONORA
[2018-08-05] MEDS ORDERED: METOPROLOL SUCCINATE 50 MG TAB XL PO SCH (09:00)
--- NOTE | 2018-08-21 06:58 | Diagnostic Imaging Report ---
PROCEDURE:US GUIDANCE FOR VASCULAR ACCESS COMPARISON:None. INDICATIONS:Malignant neoplasm bladder FINDINGS:Ultrasound evaluation of potential access sites was performed. After successfully identifying a patent vessel, US guidance was used to puncture the vein. A permanent recording was created for the patient record. CONCLUSION:Successful IV access by Ultrasound guidance. Tahir Lindsey D.O. Dictated by: Tahir Lindsey D.O. on 08/21/2018 at 7:07 Electronically approved by: Tahir Lindsey D.O. on 08/21/2018 at 7:07
== END 2018-08-04 13:50 | disposition home or self-care (01) | DRG 669 ==
LOC: OR 09:18 → PACU V 15:00 → MED/SURG 15:43
PROVIDERS: ADMIT Urology; ATTEND Urology
PROC: 0TBB8ZZ Excision of Bladder, Via Natural or Artificial Opening Endoscopic (ICD-10-PCS; principal; 2018-08-02 12:26)
DX: C67.4 Malignant neoplasm of posterior wall of bladder (principal); N18.4 Chronic kidney disease, stage 4 (severe); C67.0 Malignant neoplasm of trigone of bladder; I49.9 Cardiac arrhythmia, unspecified; Z85.038 Personal history of other malignant neoplasm of large intestine; N40.1 Benign prostatic hyperplasia with lower urinary tract symptoms; N21.0 Calculus in bladder; R31.0 Gross hematuria; N39.41 Urge incontinence; N41.1 Chronic prostatitis; R31.29 Other microscopic hematuria; R39.12 Poor urinary stream; K64.4 Residual hemorrhoidal skin tags; Z79.4 Long term (current) use of insulin; I25.10 Atherosclerotic heart disease of native coronary artery without angina pectoris; E10.42 Type 1 diabetes mellitus with diabetic polyneuropathy; E78.00 Pure hypercholesterolemia, unspecified; E78.5 Hyperlipidemia, unspecified; Z91.19 Patient's noncompliance with other medical treatment and regimen; I49.8 Other specified cardiac arrhythmias; K21.9 Gastro-esophageal reflux disease without esophagitis; F17.210 Nicotine dependence, cigarettes, uncomplicated; E66.01 Morbid (severe) obesity due to excess calories; I44.0 Atrioventricular block, first degree; G89.4 Chronic pain syndrome; I13.10 Hypertensive heart and chronic kidney disease without heart failure, with stage 1 through stage 4 chronic kidney disease, or unspecified chronic kidney disease; E10.22 Type 1 diabetes mellitus with diabetic chronic kidney disease; I35.0 Nonrheumatic aortic (valve) stenosis; E87.5 Hyperkalemia; D72.828 Other elevated white blood cell count; D50.0 Iron deficiency anemia secondary to blood loss (chronic); Z68.38 Body mass index [BMI] 38.0-38.9, adult
CPT/HCPCS: 36415; 71046; 76770; 76937; 80048; 82948; 85025; 85610; 85730; 88305; 93005; 93306; J0694; J1100; J1940; J2001; J2250; J2405; J7030; J7070

== ENCOUNTER 2019-02-07 10:23 | Inpatient (IN) | payer MEDICARE ==
[2019-02-05 14:44] LABS: BASOPHILS % 0.4 % (0.0-1.0); EOSINOPHILS # (AUTO) 0.1 (0.0-0.4); EOSINOPHILS % 1.3 % (0.0-6.0); HEMATOCRIT 32.9 % (38.2-49.6); HEMOGLOBIN 9.6 g/dL (14.0-18.0); LYMPHOCYTES % 26.3 % (18.0-39.1); MEAN CORPUSCULAR HEMOGLOBIN 21.5 pg (28-32); MEAN CORPUSCULAR HGB CONC 29.2 g/dL (31-35); MEAN CORPUSCULAR VOLUME 73.6 fL (81-99); MONOCYTES # (AUTO) 0.5 (0.2-0.8); MONOCYTES % 6.9 % (4.4-11.3); NEUTROPHILS # (AUTO) 4.9 (2.1-6.9); NEUTROPHILS % 64.7 % (38.7-80.0); PLATELET COUNT 326 x10e3/uL (140-360); RED BLOOD COUNT 4.47 x10e6/uL (4.3-5.7); RED CELL DISTRIBUTION WIDTH 20.8 % (11.7-14.4)
[2019-02-05 14:59] LABS: INR 1.09; PROTHROMBIN TIME 14.6 seconds (11.9-14.5)
[2019-02-05 15:10] LABS: ALBUMIN 2.7 g/dL (3.5-5.0); ALBUMIN/GLOBULIN RATIO 0.5 (0.8-2.0); ANION GAP 12.3 mmol/L (8-16); CALCIUM 8.9 mg/dL (8.4-10.2); CREATININE, SERUM 2.56 mg/dL (0.72-1.25); POTASSIUM 4.3 mmol/L (3.5-5.1)
[~2019-02-07] VITALS: Ht 182.9 cm; Wt 131.1 kg
[~2019-02-07 10:23] MED LIST changes: +MACROBID 100 M100 MG PO; +METOPROLOL SUCC50 MG PO
--- OUTSIDE RECORDS SUMMARY | 2019-02-07 10:26 | XMS REPORT | Clinical Summary ---
Author Author [facility] Organization [facility] Address Unknown Phone Unavailable Care Team Providers Care Natural Gas Technician Name Role Phone Gayathri Thompson DO PCP Allergies Not on File Medications Not on file Active Problems Not on file Social History Date Tobacco Use Types Packs/Day [...] Last Done Comments COLON CANCER SCREENING 2001 SHINGLES VACCINES (#1) 2001 65+ PNEUMOCOCCAL VACCINE 2016 (1 of 2 - PCV13) PNEUMOCOCCAL 2016 POLYSACCHARIDE VACCINE AGE 65 AND OVER INFLUENZA VACCINE 04/17/2019 Results Not on fileafter 02/06/2018 Insurance Type Payer Benefit Subscriber ID Effective Phone Address Plan / Dates Group PPO HUMANA MEDICARE HUMANA xxxxxxxxx 2014-P MEDICARE resent PPO/PFFS/E [facility] Advance Directives Patient has advance care planning documents on file. For more information, danya wilcox contact: Inocente Harrison [address] [place] [address]
[2019-02-07] MEDS ORDERED: IOPAMIDOL 610MG/1ML 300 MG/ML VIAL IV ONE (10:54)
[2019-02-07] MEDS ORDERED: DEXTROSE 5% 250ML 250 ML IV ONE (10:56)
[2019-02-07] MEDS ORDERED: CEFOXITIN SOD 1 GM VIAL ONE (11:18)
[2019-02-07] MEDS ORDERED: HYDROMORPHONE 2MG/ML 2 MG/ML ML ONE (13:10)
[2019-02-07] MEDS ORDERED: HYDROCODONE/APAP 5MG-325MG TAB PO PRN (13:15)
[2019-02-07] MEDS ORDERED: HYDROCODONE/APAP 7.5MG-325MG 1 EA TAB PO PRN (13:15)
[2019-02-07] MEDS ORDERED: SODIUM CHLORIDE 0.9% 1000ML 1,000 ML IV SCH (13:15)
[2019-02-07] MEDS ORDERED: MORPHINE SULFATE INJ 4 MG/ML INJ 1ML IV PRN (13:15)
--- OUTSIDE RECORDS SUMMARY | 2019-02-07 13:36 | XMS REPORT | Clinical Summary ---
Author Author [facility] Organization [facility] Address Unknown Phone Unavailable Care Team Providers Care Counter Sales Person Name Role Phone Gayathri Thompson DO PCP [...] MEDICARE HUMANA xxxxxxxxx 2014-P MEDICARE resent PPO/PFFS/E [facility] Advance Directives Patient has advance care planning documents on file. For more information, danya wilcox contact: Inocente Harrison [address] [place] [address]
--- NOTE | 2019-02-07 14:19 | NUR ---
RECEIVED TO RM AAOX3 NO DISTRESS NOTED, UPDATED ON POC VOICED UNDERSTANDING, BA WITH CBI INFUSING CLEAR YELLOW URINE NOTED, IVF INFUSING TO R HAND 20G NO SS OF INFILTRATION NOTED, NO OTHER CO VOICE CALL LIGHT IN REACH WILL CONTINUE OT MONITOR
[2019-02-07 16:18] VITALS: BP 149/75
[2019-02-07] MEDS ORDERED: DOCUSATE SODIUM 100 MG CAP PO SCH (17:00)
[2019-02-07] MEDS ORDERED: METOPROLOL SUCCINATE 25 MG TAB XL PO SCH (17:00)
[2019-02-07] MEDS ORDERED: METOPROLOL SUCCINATE 50 MG TAB XL PO SCH (17:00)
[2019-02-07] MEDS ORDERED: EPHEDRINE SULFATE INJ 50 MG/10 ML SYR ONE (17:25)
[2019-02-07] MEDS ORDERED: LIDOCAINE HCL 2% LOCAL INJ 5 ML SDV VIAL INJ ONE (17:25)
[2019-02-07] MEDS ORDERED: SEVOFLURANE INHAL SOLN 250 ML PEN BTL ONE (17:25)
[2019-02-07] MEDS ORDERED: PROPOFOL IV EMULSION 10 MG/ML 20 ML VIAL ONE (17:25)
[2019-02-07] MEDS ORDERED: DEXAMETHASONE SOD PHOS INJ 4 MG/ML VIAL ONE (17:25)
[2019-02-07] MEDS ORDERED: ONDANSETRON HCL INJ 2MG/ML 2ML 2 MG/ML VIAL ONE (17:25)
[2019-02-07 17:41] VITALS: BP 149/75
[2019-02-07] MEDS ORDERED: CEFOXITIN 1GM/ D5W 50ML 50 ML IV SCH (18:00)
--- NOTE | 2019-02-07 19:17 | NUR ---
BEDSIDE SHIFT REPORT RECEIVED FROM Zoe RIGGINS RN. PT IS AAOX3, (L) SIDE LAYING WITH LEFT LEG OFF OF BED, LEANING AGAINST (L) UPPER SIDE RAIL WITH FAMILY AT SIDE. ASSISTED PT TO SEMI FOWLERS IN BED, O2 BY NC AT 2L. NO S/SX OF DISTRESS NOTED. PT RECEIVING CBI, BA EMPTIED. LEFT PT LAYING SEMI FOWLERS IN BED, BED IN LOW LOCKED POSITION, SIDE RAILS UPX2, CALL LIGHT AND PHONE WITHIN REACH. BED ALARM ACTIVATED ZONE 1.
[2019-02-07 20:00] VITALS: BP 118/78
--- NOTE | 2019-02-07 20:00 | Operative Report ---
DATE OF PROCEDURE: 02/07/2019 SURGEON: David Bustillo MD PREOPERATIVE DIAGNOSIS: Bladder cancer. POSTOPERATIVE DIAGNOSIS: Bladder cancer. OPERATION PERFORMED: Transurethral resection of bladder cancer, 6 cm x 6 cm. ANESTHESIA: General. INDICATIONS: This patient is a 68-year-old black male who went many months of blood dripping out his penis before he would allow any evaluation. He ultimately allowed me to get a CT scan on July 26, 2018, which revealed no evidence of hydronephrosis, but a great deal of thickening of the bladder and floor of the bladder. There was no evidence of lymphadenopathy. He also went on to have a transurethral resection of a bladder tumor which was 7 cm x 8 cm in size on August 02, 2018. The tumor was all superficial, noninvasive, well-differentiated papillary carcinoma of the bladder. The patient was unreliable with followups with Dr. Castillo for intravesical chemotherapy and he arrived for followup to see me with cystoscopy, but ultimately he got to see him again in the office on January 30, 2019. He denies having any gross hematuria since I last saw him prior to that. He was now scheduled for cystoscopy with possible transurethral resection of the recurrent bladder tumor under general anesthesia. For further details, please refer to his history and physical. DESCRIPTION OF PROCEDURE: The procedure was done in the following fashion. The patient was taken to the operating room and placed under general anesthesia and dressed with Hibiclens in lithotomy position in the usual fashion. The 22-Central African Olympus resectoscope was inserted with the visual obturator and 30 degree oblique lens. No urethral strictures were encountered. The sphincter and verumontanum were intact. The prostate was estimated about 45-50 g in size. I did actually now see both ureteral orifices. There were small but I could see them. Using the blue light I could feel a lot more tumor than I could with the regular white light. There was tumor around the area of the bladder neck, trigone, near the ureteral orifices on the posterior wall of the bladder, left lateral stanley of the bladder, and right lateral stanley of the bladder. The overall size of the tumor was about 6 cm x 6 cm, but it was no longer filling up the whole bladder the way it was when he had his initial transurethral resection. The tumor was transurethrally resected with sterile water for bladder irrigation and I resected the tumor until I can see any left. I also obtained muscle specimens with the resection. When the tumor appeared to be well resected, I then made sure I had good control of bleeding. The cutting was set at 120 and coagulation at 80. Specimens were evacuated from the bladder using the Ellik. At the end of the procedure, the specimens appeared to be resected and the bleeding was under good control. The resectoscope was removed and a 22-Central African [address] catheter was inserted to continuous bladder irrigation with sterile saline. The patient tolerated procedure well, left the operating good condition. He is being admitted because of his multiple comorbidities. Dr. Kam Catalan is being consulted for medical management and Dr. Castillo is also being called to see if we can do something or getting intravesical chemotherapy with mitomycin-C initiated. David Bustillo MD THERESE/MODL /[id number] cc: David Bustillo MD
--- NOTE | 2019-02-07 20:35 | NUR ---
Called Dr. Catalan to clarify orders for patient. Patient has humalog 65 units order for bedtime. Patient takes Lantus 65 units at night. orders received low regular sliding scale, labs in the AM CBC, BMP and A1C. Dr. Catalan was given labs from the 1300 labs today GFR and WBC.
[2019-02-07] MEDS ORDERED: DEXTROSE 50% SYRINGE 50 ML IV PRN (21:00)
[2019-02-07] MEDS ORDERED: INSULIN LISPRO SC SCH (21:00)
[2019-02-07] MEDS ORDERED: SIMVASTATIN 20 MG TAB PO SCH (21:00)
[2019-02-07] MEDS ORDERED: INSULIN LISPRO 100 UNIT/1 ML 3ML VIAL SQ SCH (21:00)
[2019-02-07] MEDS ORDERED: INSULIN REGULAR, HUMAN 100 UNIT/1 ML 3ML VIAL SQ SCH (21:00)
[2019-02-07 21:16] VITALS: BP 118/78
[2019-02-07 21:50] VITALS: BP 135/88
--- NOTE | 2019-02-08 00:05 | NUR ---
heard patient call for help from nurses station, immediately walked into room. found patient reclining in recliner, aaox3, SOB receiving 02 via NC at 3L, stating "I can't breathe, I want to sit up". with help from DIRECTOR OF EARLY CHILDHOOD, while assisting patient to sitting position, he began vomiting pink/light red tinged emesis. called for help. primary nurse entered room immediately and called rapid response. patient then became unresponsive.
--- NOTE | 2019-02-08 00:06 | NUR ---
NOTIFIED BY RHEOLOGIST THAT PATIENT WAS REPORTING THAT HE COULD NOT BREATHE AND STARTED VOMITING. UPON ENTERING PATIENT ROOM, PT FOUND SITTING IN RECLINER, WITH Russell FIELDS RN AND LAURA Lipscomb RHEOLOGIST AT PATIENT SIDE. PINK TINGED FLUID NOTED TO FRONT OF GOWN, PATIENT SHAKING HEAD, IMMEDIATELY CALLED RAPID RESPONSE AND ATTEMPTED TO SPEAK WITH PATIENT. PT BECAME NON-RESPONSIVE AND STARING STRAIGHT AHEAD. CAROTID PULSE NOTED AND ATTEMPT TO OBTAIN VITALS AND FSBS STARTED. WHEN RAPID RESPONSE TEAM ARRIVED AT 0007, SECOND PULSE CHECK ATTEMPTED. NO PULSE NOTED RAPID RESPONSE CONVERTED TO CODE BLUE. PLEASE SEE CODE BLUE PAPERWORK FOR FURTHER WORKUP.
--- NOTE | 2019-02-08 00:42 | NUR ---
spoke to vipul merlos with [facility]. . primary nurse made aware.
--- NOTE | 2019-02-08 00:52 | NUR ---
NOTIFIED MD SYKES OF CODE BLUE AND PT PASSING.
--- NOTE | 2019-02-08 00:57 | NUR ---
spoke to khoi with medical voucher clerk. awaiting return phone call. primary nurse made aware.
--- NOTE | 2019-02-08 01:02 | NUR ---
NOTIFIED MD MAYER OF PATIENT CODE BLUE AND PASSING.
--- NOTE | 2019-02-08 01:20 | NUR ---
CALLED NEXT OF KIN, JORDAN RANKIN [phone], NO ANSWER LEFT MESSAGE TO RETURN CALL D/T TO CHANGE IN PATIENT STATUS. RECEIVED CALLBACK FROM JORDAN RANKIN AT 0046 AND INFORMED OF STATUS CHANGE AND REQUESTED SHE COME TO HOSPITAL. MET JORDAN RANKIN AND FAMILY IN WAITING AREA AT 0120 AND INFORMED THEM OF PATIENT PASSING AND EVENTS LEADING UP TO CODE. ASKED FAMILY IF ANYONE COULD BE NOTIFIED FOR THEM AND FAMILY DECLINED AT THIS TIME AND ESCORTED FAMILY TO PATIENT ROOM.
--- NOTE | 2019-02-08 02:37 | NUR ---
follow up with medical examiners office. Spoke to Juan at this time. He stated it will be around 1-2 hrs.
--- NOTE | 2019-02-08 03:51 | NUR ---
received call from medical examiners office. Spoke to Sherley Sanchez. Information given patients address, next of kin name and address. patient medical history, procedure and reason for admission to the hospital. Time of , MD who pronounced, MD who will sign certificate name and phone number. Sherley Sanchez stated it was natural , case given over to attending MD, Release # [id number].
[2019-02-08 04:00] VITALS: BP 112/74
--- NOTE | 2019-02-08 04:50 | NUR ---
FAMILY HAS CHOSEN [facility]. SPOKE WITH JORDAN RAMIREZ CONCERNING PICKUP OF BODY. WAS INFORMED THAT THE TRANSPORTER WILL BE CALLING WITH ESTIMATED TIME OF ARRIVAL.
--- NOTE | 2019-02-08 05:11 | NUR ---
SPOKE WITH JULES FROM [facility] ABOUT TRANSPORTATION OF BODY. REPORTS THAT HE WILL BE HERE WITHIN THE HOUR.
--- NOTE | 2019-02-08 06:10 | NUR ---
JULES FROM [facility] ARRIVED TO TRANSPORT BODY TO [facility].
[2019-02-08] MEDS ORDERED: CYCLOBENZAPRINE HCL 10 MG TAB PO SCH (09:00)
[2019-02-08] MEDS ORDERED: AMLODIPINE BESYLATE 5 MG TAB PO SCH (09:00)
[2019-02-08] MEDS ORDERED: TAMSULOSIN HCL 0.4 MG CAP PO SCH (09:00)
--- NOTE | 2019-03-01 04:46 | Discharge Summary ---
DATE OF : February 08, 2019. OPERATION PERFORMED: Transurethral resection of a bladder tumor approximately 6 cm x 6 cm in size. SURGEON: Dr. David Bustillo. FINAL DIAGNOSES: Heart attack. Contributing factors are bladder cancer, diabetes mellitus insulin dependent, hypertension, and morbid obesity. HISTORY OF PRESENT ILLNESS: This patient was a 68-year-old black male, who had blood in his urine for several months before he finally agreed to let me do a cystoscopy on him. This had to be done under anesthesia and was found to have a bladder cancer. The tumor was approximately 8 cm x 8 cm in size, but it was noninvasive. The patient then postponed having his followup cystoscopies and then finally agreed to have followup cystoscopy on January 19. The patient's past medical history remarkable in that he has had right cataract surgery in January of 2019, colon resection in September of 2013, and a Port-A-Cath placement in January of 2015. He has had a long history of chronic prostatitis. 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 He has had gallstones, gross hematuria, urinary tract infections, benign prostatic hypertrophy with obstruction. He has also had a two part displaced fracture of the surgical neck of left humerus. He has had atherosclerotic heart disease with hypertension, malignant neoplasm of the colon, obesity, diabetes mellitus with diabetic neuropathy, pure hypercholesterolemia, tenia pedis, and he is on insulin. His medications at the time of admission were metoprolol, simvastatin, tamsulosin, amlodipine, ammonium lactate, ciclopirox, cyclobenzaprine, diclofenac, Humalog KwikPen, hydrocodone with acetaminophen, Lantus SoloStar and levocetirizine dihydrochloride. The patient's family history is remarkable that his father had colon cancer, father had diabetes, father had a heart attack, father had heart disease, and father had hypertension. The patient had used tobacco in the past. For further details, please refer to the history and physical. It should be noted that the patient is morbidly obese and has been wheelchair bound for many years. HOSPITAL COURSE: The patient came into the hospital on January 18, 2019, and had a cystoscopy with transurethral resection of recurrent bladder cancer measuring about 6 cm x 6 cm in size. It was not filling up the lumen of his bladder in the way it was at the time of his initial resection, but it was still apparent to me that he had recurrent bladder cancer present. See the intraoperative photographs. The final pathology report though has not made it into the chart at this time. The patient left the operating room in good condition with a Fermin catheter and he was doing well until about 12:30 in the morning on the when he suddenly had chest pain and the nursing staff called the emergency room staff for code and it was apparent that the patient had a heart attack, but they were unable to revive him. I have already filled out a certificate. David Bustillo MD SRA/MODL /[id number]
== END 2019-02-08 00:34 | disposition expired | DRG 670 ==
LOC: OR 10:23 → PACU V 13:30 → MED/SURG 14:20
PROVIDERS: ADMIT Urology; ATTEND Urology
PROC: 0TBB8ZZ Excision of Bladder, Via Natural or Artificial Opening Endoscopic (ICD-10-PCS; principal; 2019-02-07 12:00)
PROC: 5A12012 Performance of Cardiac Output, Single, Manual (ICD-10-PCS; 2019-02-08)
PROC: 5A2204Z Restoration of Cardiac Rhythm, Single (ICD-10-PCS; 2019-02-08)
DX: C67.8 Malignant neoplasm of overlapping sites of bladder (principal); I46.2 Cardiac arrest due to underlying cardiac condition; I49.01 Ventricular fibrillation; E11.40 Type 2 diabetes mellitus with diabetic neuropathy, unspecified; N40.1 Benign prostatic hyperplasia with lower urinary tract symptoms; R39.12 Poor urinary stream; R57.1 Hypovolemic shock; E66.9 Obesity, unspecified; Z68.39 Body mass index [BMI] 39.0-39.9, adult; K21.9 Gastro-esophageal reflux disease without esophagitis; I10 Essential (primary) hypertension; I25.10 Atherosclerotic heart disease of native coronary artery without angina pectoris; E78.00 Pure hypercholesterolemia, unspecified; M19.90 Unspecified osteoarthritis, unspecified site; Z79.4 Long term (current) use of insulin; Z83.3 Family history of diabetes mellitus; Z80.0 Family history of malignant neoplasm of digestive organs; Z82.49 Family history of ischemic heart disease and other diseases of the circulatory system
CPT/HCPCS: 36415; 80053; 82948; 85025; 85610; 85730; 88305; 93005; J0694; J1100; J2001; J2405; J7030; J7070